=== PATIENT | male | born 1995 ===

== ENCOUNTER 2021-01-11 20:04 | Emergency (ER) ==
[~2021-01-11] VITALS: Ht 170.2 cm; Wt 82.6 kg
--- NOTE | 2021-01-11 21:19 | REPVR ---
PROCEDURE INFORMATION: Exam: XR Left Hand Exam date and time: 01/11/2021 8:25 PM Age: 25 years old Clinical indication: Other: Fell. Jammed thumb; Additional info: Fell and jammed left thumb TECHNIQUE: Imaging protocol: XR Left hand. Views: 3 or more views. COMPARISON: No relevant prior studies available. FINDINGS: Bones/joints: It is suspected that there is a tiny hairline fracture distal articular surface proximal phalanx 1st digit. There is bowing deformity of the 1st metacarpal consistent with old trauma and chronic change. Suspect small exostosis palmar side of the distal 1st metacarpal. Soft tissues: There is only mild soft tissue swelling. IMPRESSION: Suspect tiny hairline fracture distal articular surface proximal phalanx 1st digit. Electronically signed by: Christ Martinez On 01/11/2021 21:19:12 PM
== END 2021-01-11 23:46 | disposition left against medical advice (07) ==
LOC: M ED 20:04
DX: Z53.21 Procedure and treatment not carried out due to patient leaving prior to being seen by health care provider (principal)